=== PATIENT | male | born 1970 | race Caucasian/White ===

== ENCOUNTER 2017-03-07 10:28 | Day surgery (SDC) | payer BC ==
--- NOTE | 2017-03-07 08:23 | HP ---
DATE OF SURGERY: 03/07/2017 HISTORY OF PRESENT ILLNESS: The patient is a 46 year-old for six to eight months epigastric pain with nausea and vomiting, worse with greasy and spicy foods. He takes Nexium which helps a little but has not resolved his systems. He had some loose stools up to three times a week and some vomiting at times. PAST MEDICAL HISTORY: GI bleed. Hypertension. Reflux and gastritis. PAST SURGICAL HISTORY: Upper endoscopy two years ago. Kameron-en-Y gastric bypass. Knee surgery. Tonsillectomy in the past. MEDICATIONS: Lisinopril, metoprolol, ferrous sulfate, Lexapro, lisinopril, magnesium, montelukast, pantoprazole, fluoxetine, potassium, testosterone injection, tramadol, B1, B12. ALLERGIES: NKDA. FAMILY HISTORY: Cancer, diabetes, hypertension. SOCIAL HISTORY: He denies smoking. He drinks alcohol denies abuse. REVIEW OF SYSTEMS: Twelve systems reviewed per admission assessment. No chest pain or palpitations other systems negative or noncontributory as above and per preadmission questionnaire. LAB DATA AND TESTS: Ultrasound showed tiny gallstones with some wall thickening. HIDA also showed minimal gallbladder activity. PHYSICAL EXAMINATION: GENERAL: No acute distress. HEENT: Sclerae nonicteric. NECK: No JVD. CHEST: Equal excursion. CVS: Regular rate and rhythm. ABDOMEN: Soft, some mild epigastric tenderness. No peritoneal signs. EXTREMITIES: No significant edema. NEURO: Alert, moving extremities symmetrically. No gross motor deficits noted. IMPRESSION: Symptomatic sludge, tiny gallstones, chronic cholecystitis possible dyskinesia. I recommend cholecystectomy. Risks and benefits explained in detail including but not limited to bleeding or infection, small risk of bowel injury or perforation possibly requiring further procedure, risk of missed or nondiagnosis, risk or trocar injury or hernia, possibility given his past bariatric surgery that he might need to convert to open procedure if unable to have enough space to proceed with cholecystectomy. He also understands risk of bile leak, bile duct injury, retained stone or sludge possibly requiring further procedure either open or ERCP, general risk of anesthesia, deep venous thrombosis, pulmonary embolism, pneumonia, perioperative risk of aches, pains, bloating, constipation and/or loose stools possibly chronic in nature, possibility the procedure may not improve his symptoms that he may need further work up and/or testing, other studies or procedures. He also understands and agrees to the procedure. He was shown the gallbladder pamphlet and explained all of the above risks but not limited to, will proceed with laparoscopic cholecystectomy with possible as an outpatient.
[~2017-03-07 10:28] MED LIST: Lactated Ringers 1,000 ML IV ONE; Sensorcaine 0.25% 10 ML ONE
[2017-03-07] MEDS ORDERED: DIPRIVAN 200 MG/20 ML IV ONE (10:29)
[2017-03-07] MEDS ORDERED: Zofran 4 MG/2 ML VIAL IV ONE (10:29)
[2017-03-07] MEDS ORDERED: DILAUDID 2 MG INJECTION IV ONE (10:29)
[2017-03-07] MEDS ORDERED: SUBLIMAZE 100 MCG/2 ML IV ONE (10:29)
[2017-03-07] MEDS ORDERED: TORAdol 30 mg Injection IV ONE (10:29)
[2017-03-07] MEDS ORDERED: Quelicin Fliptop 200 MG/10 ML IV ONE (10:29)
[2017-03-07] MEDS ORDERED: Zemuron 100 MG/10 ML IV ONE (10:29)
[2017-03-07] MEDS ORDERED: Decadron 4 MG INJ IV ONE (10:29)
[2017-03-07] MEDS ORDERED: BRIDION 200MG/2ML IV ONE (10:29)
[2017-03-07] MEDS ORDERED: Lactated Ringers 1,000 ML IV SCH (10:30)
[2017-03-07] MEDS ORDERED: MEFOXIN 2 GM PREMIX** 2 GM/50 ML ML IV SCH (11:00)
[2017-03-07 11:35] LABS: Hematocrit 42.1 % (42-50); Hemoglobin 14.1 gm/dl (12.5-18.0); Mean Cell Volume 91.3 fl (78-100); Mean Corpuscular Hemoglobin 30.6 pg (26-32); Mean Corpuscular Hgb Concent. 33.5 g/dl (32-36); Mean Platelet Volume 9.6 fl (6-9.5); Platelet Count 168 K/mm3 (150-450); Red Blood Count 4.61 M/mm3 (4.1-5.6); Red Cell Distribution Width 12.7 % (11.5-14.0); White Blood Count 4.8 K/mm3 (4.0-10.5)
[2017-03-07] MEDS ORDERED: Versed 2 MG/2 ML Injection IV ONE (11:55)
[2017-03-07] MEDS ORDERED: Versed 2 MG/2 ML Injection ONE (11:57)
[2017-03-07 12:06] LABS: ANION GAP 11.9 MEQ/L (5-15); BLOOD UREA NITROGEN 10 mg/dL (9-20); CHLORIDE 104 mEq/L (98-107); Calcium 8.9 mg/dL (8.5-10.1); Carbon Dioxide 29.3 mEq/L (21-32); Creatinine 1 0.98 mg/dl (0.55-1.30); EST GLOMERULAR FILTRATION RATE > 60 ML/MIN; Glucose 89 MG/DL (70-110); Potassium 4.2 mEq/L (3.5-5.1); SODIUM 141 mEq/L (136-145)
[2017-03-07] MEDS ORDERED: Lactated Ringers 1,000 ML IV ONE (14:00)
[2017-03-07 14:19] LABS: Appearance CLEAR (CLEAR); Bilirubin NEGATIVE (NEGATIVE); Blood NEGATIVE Ery/ul (0-5); Glucose NEGATIVE (NEGATIVE); Ketones SMALL (NEGATIVE); Leukocyte Esterase NEGATIVE (NEGATIVE); Nitrite NEGATIVE (NEGATIVE); Protein,Urine Dip NEGATIVE (Negative); Specific Gravity 1.015 (1.005-1.025); Urobilinogen NORMAL mg/dL (0-1)
[2017-03-07] MEDS ORDERED: SUBLIMAZE 100 MCG/2 ML ONE (14:39)
[2017-03-07] MEDS ORDERED: Zofran 4 MG/2 ML VIAL ONE (15:02)
[2017-03-07 16:29] VITALS: O2SAT 97
[2017-03-07 16:37] VITALS: BP 143/93; PULSE 64
--- NOTE | 2017-03-08 08:40 | OP ---
SURGERY DATE/TIME: 03/07/2017 1252 PREOPERATIVE DIAGNOSIS: Symptomatic cholelithiasis, chronic cholecystitis. POSTOPERATIVE DIAGNOSIS: Symptomatic cholelithiasis, chronic cholecystitis. PROCEDURE: Laparoscopic cholecystectomy. SURGEON: Dr. Ferny Roberts. ANESTHESIA: General. ESTIMATED BLOOD LOSS: Minimal. INDICATIONS: As noted above. Risks and benefits explained in detail but not limited to and consent obtained. DESCRIPTION OF PROCEDURE AND FINDINGS: The patient was taken to the OR. General anesthesia was induced. Abdomen was prepped and draped in the usual sterile fashion. . After official time out and no disagreement with planned procedure, a transverse incision made at the supraumbilical area. Fascia grasped and pulled upward. Veress needle inserted and tested with saline. Pneumoperitoneum accomplished insufflating opening pressure 0-15. An 11 mm bladeless port and camera were inserted without difficulty followed by two - 5 mm right upper quadrant ports and 5 mm epigastric port. The patient had previous bariatric procedure with extensive omental adhesions epigastrium wound. It took quite some time to take down omentum. A thick coat of chronic adipose inflammatory reaction. It took quite some time but slowly and carefully dissected posterior-lateral to anterior fashion slowly and carefully accomplished. The cystic artery could be well identified and pulsatile. It was clipped x3 and divided this opened up the angle. The cystic duct and infundibular junction slowly and carefully skeletonized until a critical view was obtained both anteriorly and posteriorly. Part of the omentum had some oozing vessels that required clipping x3 that required peeling it off of the gallbladder. The cystic duct infundibular junction slowly and carefully well skeletonized until critical view obtained both anteriorly and posteriorly. Once this was accomplished cystic duct was then clipped x3 and an additional clip placed on cystic duct stump. The cystic duct divided in usual fashion after critical view had been obtained both anteriorly and posteriorly and clipped in the usual fashion. Gallbladder slowly and carefully dissected free from its dense almost concrete attachments to the liver bed. Quite vascular and inflammatory reaction required clipping additional oozing side branches off the cystic artery directly on the gallbladder. Just prior to releasing from final attachments to the anterior edge of the liver the liver bed re-inspected. There was a small vein on the anterior edge of the liver and this was clipped x3. Clips noted to be in place in cystic duct and cystic artery stumps. There were no signs of any active bleeding or bile leakage. The gallbladder was released from final attachments to the anterior edge of the liver, pulled up into 10/11 port site of umbilical area. Because of his weight it was difficult to get the tip out, allowing bile suction and irrigated as well as possible allowing the gallbladder to be pulled free and passed off. Copious amount of irrigation irrigating until clear. The liver bed re-inspected. Clips noted to be in place in cystic duct and cystic artery stumps. There were no signs of any active bleeding or bile leakage with the clips noted in place in cystic duct and cystic artery stumps. It was felt there was no benefit from drain placement. Copious amount of irrigation accomplished lateral to the liver. At this point fascial defects at 11 site was closed with puncture closure device with #1 Vicryl. Pneumoperitoneum decompressed. The wound was irrigated out. Skin incision closed with 4-0 Vicryl. Steri-Strips and sterile dressing applied. 0.25% Marcaine local injected along the skin incision fascial defect. The patient tolerated the procedure well. There were no immediate complications.
== END 2017-03-07 16:10 | disposition home or self-care (01) ==
LOC: SDC 10:28
PROVIDERS: ATTEND Surgery
PROC: 0FT44ZZ Resection of Gallbladder, Percutaneous Endoscopic Approach (ICD-10-PCS; principal; 2017-03-07)
DX: K80.10 Calculus of gallbladder with chronic cholecystitis without obstruction (principal); K82.8 Other specified diseases of gallbladder; I10 Essential (primary) hypertension; K21.9 Gastro-esophageal reflux disease without esophagitis; Z98.84 Bariatric surgery status; Z79.899 Other long term (current) drug therapy
CPT/HCPCS: 00790; 36415; 80048; 81002; 85027; 88304; J0330; J0694; J1100; J1170; J1885; J2250; J2405; J2704; J3010; L0625